=== PATIENT | female | born 1935 | race Caucasian/White ===

== ENCOUNTER 2018-09-07 12:39 | Inpatient (IN) ==
--- NOTE | 2018-09-07 13:52 | PROVIDER DOCUMENTATION ---
HPI-Respiratory General - General Chief Complaint: Shortness of Breath Stated Complaint: SOB/FEVER/CONGESTION Time Seen by Provider: 09/07/18 13:04 Source: patient, family Allergies/Adverse Reactions: Patient Allergies Allergy/AdvReac Type Severity Reaction Status Date / Time No Known Allergies Allergy Verified 09/07/18 13:10 Home Medications: Home Medication List Medication Instructions Recorded Confirmed Last Taken Type Levothyroxine [Synthroid] 50 microgm PO DAILY 03/30/15 05/25/18 05/25/18 History Metformin [Glucophage] 500 mg PO WBREAKFAST 03/30/15 05/25/18 05/25/18 History PRAVAstatin [Pravachol] 40 mg PO DAILY 03/30/15 05/25/18 05/25/18 History Spironolact/Hydrochlorothiazid 0.5 tab PO DAILY 05/25/18 05/25/18 05/25/18 History [Aldactazide 25-25 Tablet] Cyanocobalamin/FA/Pyridoxine 1 each PO DAILY #30 tablet 05/28/18 Unknown Rx [Folgard Tablet] Iron Carbonyl/Ascorbic Acid 1 each PO BID #60 tablet 05/28/18 Unknown Rx [Icar-C] Multivitamins/Minerals [Centrum 1 each PO DAILY tablet 05/28/18 Unknown Rx Silver] Omeprazole [Prilosec] 40 mg PO DAILY@0700 #30 capsule 05/28/18 Unknown Rx Losartan [Cozaar] 50 mg PO BID 30 Days #60 tab 05/31/18 Unknown Rx - History of Present Illness-Resp Nature of Presenting Problem: Presents to the with family who states that for the past 3 days she has been having cough, congestion and SOB. THey state that her SOB was worse on exertion and worse when laying flat. She does have a history of CHF they think and she does take Spironolactone and HCTZ but no other diuretics. She states her cough has whitish mucous. She denies any sick contacts. She went to urgent care prior to arrival and they sent her here with reports of 101.5 fever and tachycardia. She did not take any motrin or tylenol prior to arrival. Severity in ED: reports: moderate Onset/Duration: reports: 3 days ago Timing: reports: still present Cough Quality/Degree: reports: moderate, productive cough Episode Frequency: no prior episodes Modifying Factors: improves with: exertion, lying down Associated Symptoms: reports: cough Similar Symptoms Previously?: Yes Review of Systems - Adult - REVIEW OF SYSTEMS - ADULT Constitutional: reports: chills, fever Eyes: reports: no symptoms reported Ears, Nose, Mouth & Throat: reports: no symptoms reported Cardiovascular: reports: no symptoms reported Respiratory: reports: cough, dyspnea on exertion, shortness of breath Gastrointestinal: reports: no symptoms reported Genitourinary: reports: no symptoms reported Musculoskeletal: reports: no symptoms reported Integumentary: reports: no symptoms reported Neurological: reports: no symptoms reported Psychiatric: reports: no symptoms reported Endocrine: reports: no symptoms reported Hematologic/Lymphatic: reports: no symptoms reported Allergic/Immunologic: reports: no symptoms reported All Other Systems: Reviewed and Negative Past History - Adult - PAST MEDICAL HISTORY-ADULT Review of Records: reports: Old Records Reviewed - IMMUNIZATION STATUS Childhood Immunizations: See Nurse Assessment Flu Vaccine: See Nurse Assessment Physical Exam-General - PHYSICAL EXAM-ADULT Initial Vital Signs Reviewed: Yes - CONSTITUTIONAL General Appearance: appears well, alert, mild distress - EYES Eyes: PERRL/EOMI - HEAD, EARS, NOSE, MOUTH & THROAT HENMT: normocephalic/atraumatic, pharynx normal - NECK Neck: non-tender, full range of motion, supple - RESPIRATORY Respiratory: chest non-tender, lungs clear, no respiratory distress, other (tachypnea) - CARDIOVASCULAR Cardiovascular: normal peripheral pulses, tachycardia - GASTROINTESTINAL (ABDOMEN) Abdominal Exam: normal bowel sounds, non tender, soft - MUSCULOSKELETAL Back Exam: normal inspection, no CVA tenderness Extremity: normal range of motion, non-tender, no pedal edema - SKIN Integumentary: normal color, warm/dry - NEUROLOGIC Neurologic: grossly normal - PSYCHIATRIC Psych/Mental Status: normal mood/affect, oriented x 3 Progress - PLAN OF CARE/RESULTS Progress/Plan/Lab Results: Vital Signs - 8 hr 09/07/18 12:45 09/07/18 13:00 09/07/18 13:06 Temperature 98.5 F Pulse Rate 109 H 108 H Respiratory Rate 22 34 H Blood Pressure 204/85 194/110 O2 Sat by Pulse Oximetry 94 L 92 L 92 L 09/07/18 13:10 09/07/18 13:18 09/07/18 13:20 Temperature Pulse Rate 103 H 122 H 101 H Respiratory Rate 36 H 21 33 H Blood Pressure 165/103 O2 Sat by Pulse Oximetry 93 L 96 94 L 09/07/18 13:30 09/07/18 13:33 09/07/18 13:40 Temperature Pulse Rate 109 H 106 H 113 H Respiratory Rate 32 H 25 H 30 H Blood Pressure 203/119 O2 Sat by Pulse Oximetry 99 92 L 91 L 09/07/18 13:58 09/07/18 14:00 09/07/18 14:04 Temperature Pulse Rate 104 H 106 H 105 H Respiratory Rate 27 H 37 H 29 H Blood Pressure 224/108 O2 Sat by Pulse Oximetry 93 L 91 L 09/07/18 14:10 09/07/18 14:19 09/07/18 14:20 Temperature Pulse Rate 104 H 110 H 97 H Respiratory Rate 26 H 34 H 33 H Blood Pressure 197/118 O2 Sat by Pulse Oximetry 90 L 93 L 92 L 09/07/18 14:30 09/07/18 14:33 09/07/18 16:51 Temperature Pulse Rate 109 H 97 H 107 H Respiratory Rate 28 H 33 H 28 H Blood Pressure 217/115 O2 Sat by Pulse Oximetry 94 L 95 92 L Laboratory Results - last 24 hr 09/07/18 09/07/18 09/07/18 13:30 13:30 13:30 WBC 18.82 H RBC 4.36 Hgb 12.6 Hct 39.0 MCV 89.4 MCH 28.9 MCHC 32.3 L RDW Std Deviation 15.9 H Plt Count 317 MPV 10.7 H Immature Gran % (Auto) 0.3 Neut % (Auto) 87.0 H Lymph % (Auto) 4.6 L V[place] % (Auto) 7.9 Eos % (Auto) 0.0 Baso % (Auto) 0.2 Immature Gran # (Auto) 0.05 H Neut # (Auto) 16.39 H Lymph # (Auto) 0.86 L [place] # (Auto) 1.49 H Eos # (Auto) 0.00 Baso # (Auto) 0.03 Sodium 141 Potassium 4.4 Chloride 95 L Carbon Dioxide 30 Anion Gap 16 BUN 16 Creatinine 1.4 H Estimated GFR/1.73 m2 36 BUN/Creatinine Ratio 11 Glucose 157 H Calculated Osmolality 286 Calcium 9.1 Total Bilirubin 1.24 H AST 29 ALT 19 Alkaline Phosphatase 83 Troponin T [id number] Pept Total Protein 7.3 Albumin 4.1 Globulin 3.2 Albumin/Globulin Ratio 1.3 Plasma Lactate 1.9 Urine Source Urine Color Urine Turbidity Urine pH Ur Specific Brewster Urine Protein Ur Glucose (Stick) Ur Ketones (Stick) Urine Blood Urine Nitrite Urine Bilirubin Urobilinogen Dipstick Urine Leukocytes Urine WBC (Auto) Urine RBC (Auto) U Epithel Cells (Auto) Urine Bacteria (Auto) Urine Crystals Small Round Cells Urine Casts Urine Yeast-like Cells 09/07/18 09/07/18 09/07/18 13:30 13:30 14:50 WBC RBC Hgb Hct MCV MCH MCHC RDW Std Deviation Plt Count MPV Immature Gran % (Auto) Neut % (Auto) Lymph % (Auto) [place] % (Auto) Eos % (Auto) Baso % (Auto) Immature Gran # (Auto) Neut # (Auto) Lymph # (Auto) [place] # (Auto) Eos # (Auto) Baso # (Auto) Sodium Potassium Chloride Carbon Dioxide Anion Gap BUN Creatinine Estimated GFR/1.73 m2 BUN/Creatinine Ratio Glucose Calculated Osmolality Calcium Total Bilirubin AST ALT Alkaline Phosphatase Troponin T < 0.010 [id number] Pept 1472 H Total Protein Albumin Globulin Albumin/Globulin Ratio Plasma Lactate Urine Source CLEAN CATCH Urine Color YELLOW Urine Turbidity HAZY Urine pH 6.0 Ur Specific Brewster 1.016 Urine Protein 50 A Ur Glucose (Stick) NEGATIVE Ur Ketones (Stick) NEGATIVE Urine Blood SMALL A Urine Nitrite NEGATIVE Urine Bilirubin NEGATIVE Urobilinogen Dipstick NORMAL Urine Leukocytes LARGE A Urine WBC (Auto) TNTC A Urine RBC (Auto) <10 U Epithel Cells (Auto) <10 Urine Bacteria (Auto) NEGATIVE Urine Crystals NONE SEEN Small Round Cells Not Reportable Urine Casts NONE SEEN Urine Yeast-like Cells PRESENT Orders Category Date Time Status CHEST-2 VIEWS [RAD] Stat Exams 09/07/18 13:42 Completed BLOOD CULTURE [BLDCUL] Stat Lab 09/07/18 13:30 Results CBC WITH ELECTRONIC DIFF [HEME] Stat Lab 09/07/18 13:30 Completed COMPREHENSIVE METABOLIC PANEL [CHEM] Stat Lab 09/07/18 13:30 Completed LACTATE, PLASMA [CHEM] Stat Lab 09/07/18 13:30 Completed PRO B-NATRIURETIC PEPTIDE Stat Lab 09/07/18 13:30 Completed TROPONIN T Stat Lab 09/07/18 13:30 Completed URINALYSIS W/POSS RFLX CULT [URINALYSIS] Stat Lab 09/07/18 14:50 Completed URINE CULTURE [RM] Routine Lab 09/07/18 15:12 Received URINE MANUAL MICROSCOPIC [URINALYSIS] Stat Lab 09/07/18 14:50 Completed CefTRIAXONE [Rocephin] 1 gm Med 09/07/18 16:11 Discontinued 0.9% Sodium Chloride Inj [Ns] 50 ml IV NOW Transfer/Admit Order [TRANSFER] Routine Transfer 09/07/18 18:09 Ordered Patient with WBC to 18.8, negative CXR, elevated BNP and UA + for UTI. Spoke to Dr Ryan who is coldfusion for patient's PCP. He stated he will come in and see the patient prior to accepting for admission. Patient seen by Dr Ryan, accepted for admission. Stable for floor with telemetry Result Diagrams: 09/07/18 13:30 09/07/18 13:30 - EKG 1 Time of EKG reading by physician:: 13:05 EKG Read and Signed by:: Aylin Urbina EKG Interpretation (*Must complete 3 of following elements*): Abnormal Rate: 104 Rhythm: NSR, tachycardia QRS: RBB ST Wave: non-specific ST changes - XRAY 1 XRAY Study: Chest Impression: See EMR Report (EXAM: CHEST-2 VIEWS 09/07/2018 HISTORY: reports of fevers, SOB, CHF TECHNIQUE: PA and lateral chest COMMENT: There is cardiomegaly. There is no evidence of acute pulmonary disease. The appearance the chest has not changed appreciably considering differences in technique since 05/25/2018. IMPRESSION: Stable chest. Electronically signed by Charles Modi 09/07/2018 1:55 PM) Departure - Departure Date of Disposition Decision: 09/07/18 Time of Disposition Decision: 19:01 DIAGNOSIS: Shortness of breath on exertion, Congestive heart failure, UTI (urinary tract infection), Leukocytosis Disposition: ADMITTED INPATIENT 09 Certified Medical Emergency: Emergent Condition: Stable - Critical Care Note This patient required my direct & personal management of CC.: No Attestation - Physician/ BRIT Attestation Patient care was provided by Advanced Practice Provider:: No The physician spent face to face time with patient:: Yes Advanced Practice Provider documentation review:: Supervising physician onsite and consulted in the evaluation and care of this patient. The physician did have a face to face encounter with the patient.
--- NOTE | 2018-09-07 13:57 | Diag Imaging Result Doc PS360 ---
EXAM: CHEST-2 VIEWS 09/07/2018 HISTORY: reports of fevers, SOB, CHF TECHNIQUE: PA and lateral chest COMMENT: There is cardiomegaly. There is no evidence of acute pulmonary disease. The appearance the chest has not changed appreciably considering differences in technique since 05/25/2018. IMPRESSION: Stable chest. Electronically signed by Charles Modi 09/07/2018 1:55 PM
[2018-09-07 14:27] LABS: BASO# 0.03 X1000 (0.0-0.2); BASO% 0.2 % (0.0-0.8); HEMOGLOBIN 12.6 g/dL (12.0-16.0); IMM GRAN# 0.05 X1000 (0.0-0.04); IMM GRAN% 0.3 % (0.0-0.5); LYMPH# 0.86 X1000 (1.2-3.4); LYMPH% 4.6 % (20.5-51.1); MCH 28.9 PG (27-31); MCHC 32.3 g/dL (33-37); MCV 89.4 FL (81-99); MONO# 1.49 X1000 (0.11-0.59); MONO% 7.9 % (1.7-9.3); MPV 10.7 FL (7.4-10.4); NEUT# 16.39 X1000 (1.4-6.5); PLT 317 X1000 (130-400); RBC 4.36 XMIL (4.2-5.4); RDW 15.9 % (11.5-14.5); WBC 18.82 X1000 (4.8-10.8)
[2018-09-07 14:41] LABS: ALB/GLOB RATIO 1.3; ALBUMIN 4.1 g/dL (3.5-5.0); CALCIUM 9.1 mg/dL (8.8-10.2); CREATININE 1.4 mg/dL (0.5-0.9); POTASSIUM 4.4 mmol/L (3.5-5.1); TOTAL BILIRUBIN 1.24 mg/dL (0.20-1.00); TOTAL PROTEIN 7.3 g/dL (6.3-8.3)
[2018-09-07 15:01] LABS: URINE SOURCE CLEAN CATCH
[2018-09-07 15:08] LABS: BILIRUBIN URINE NEGATIVE (NEGATIVE); BLOOD URINE SMALL (NEGATIVE); COLOR YELLOW; GLUCOSE URINE NEGATIVE (NEGATIVE); KETONE URINE NEGATIVE (NEGATIVE); LEUKOCYTES URINE LARGE (NEGATIVE); NITRITE URINE NEGATIVE (NEGATIVE); PROTEIN URINE 50 mg/dL (NEGATIVE); SP GRAVITY URINE 1.016; TURBIDITY URINE HAZY (CLEAR); UROBILINOGEN URINE NORMAL (NORMAL)
[2018-09-07 15:11] LABS: UR EPITHELIAL CELLS <10 /HPF (<10); URINE BACTERIA NEGATIVE /HPF; URINE RBC <10 /HPF (<10); URINE WBC TNTC /HPF (<10)
[2018-09-07 15:23] LABS: URINE CASTS NONE SEEN; URINE CRYSTALS NONE SEEN; URINE YEAST PRESENT
[2018-09-07] MEDS ORDERED: ROCEPHIN 1 GM in NS 50 ML IV ONE (16:11)
--- NOTE | 2018-09-07 18:42 | HISTORY AND PHYSICAL ---
HISTORY OF PRESENT ILLNESS: Ms. Kam is an 83-year-old. She lives alone in [place]. She is a patient of Dr. Dale Bermudez. The report was that she has felt bad. Apparently Dr. Bermudez just saw her last Saturday in the clinic. She was doing well. She reports she has had burning when she passed her water, she thinks for a couple weeks, but her main complaint when she went to the ambulatory clinic was that she was short of breath and just did not feel good in general. I tried to get her to specify what that meant. She did not really have pain. She did not really have aches of any kind. I think it was mainly her shortness of breath. She has had a cough that has been dry and nonproductive. Denies any sinus tenderness. No gross hematuria. Her bowels have really not changed, her bowel habits, and no complaints there. There has not been any weight gain or loss. She has not noticed any subjective fever or chills, but went to an ambulatory clinic and apparently there she had a low-grade temperature of, I think they said it was 100.2, but that was just the report, and they were concerned because her white count was elevated. When they checked her white count when she came to the emergency room, it was 18,000. She has really a normal differential. There may be a slight left shift. Her chemistries were unremarkable, but all-in-all, she just did not feel good, and she felt she needed to come in the hospital. PAST MEDICAL HISTORY: 1. Chronic iron deficiency anemia. 2. In 2014, she had an upper GI bleed with significant acute blood loss at that time. 3. She reports that she has had congestive heart failure. I looked at an echo which was done in May 2018, and she has a normal left ventricle with good ejection fraction of 60% to 65%. 4. She has a history of smoking. I think she quit, though, in 1995. PAST SURGICAL HISTORY: She does not report any surgeries. ALLERGIES: No known drug allergies. FAMILY HISTORY: She reports it as really noncontributory. I think there was some history of hypertension, otherwise unremarkable. FURTHER PAST MEDICAL HISTORY: I should mention also she has a history of primary hypothyroidism and hypertension and diabetes mellitus and hypercholesterolemia. MEDICATION: At home, she is taking levothyroxine 50 mcg a day, losartan 50 mg a day, metformin 500 mg a day, pravastatin 40 mg a day, spironolactone/hydrochlorothiazide 25/25 one a day. SOCIAL HISTORY: Former smoker, used to smoke 2-1/2 packs for 30+ years. She quit in 1993. She had has never consumed alcoholic beverages. One of her sons and a bovctzbm-qj-wmu were at the bedside, I think. REVIEW OF SYSTEMS: Constitutional: She has not gained or lost weight. HEENT: I do not see any loss of visual or change in auditory acuity. Neck: No neck pain. No cervical adenopathy reported. Cardiovascular: No chest pain or tachycardic palpitation. Pulmonary: She is complaining of shortness of breath. She always sleeps in a recliner. She feels like she cannot walk as far. She does not really describe any orthopnea or paroxysmal nocturnal dyspnea. No swelling in her lower extremities. Gastrointestinal/Genitourinary: No melena or hematochezia. No change in her bowel habits. No rectal bleeding. No gross hematuria, but she does describe that she had some burning when she has been passing her water. Neurologic: No migraines or seizures. No focal changes. Endocrinologic/hematologic: Just primary hypothyroidism. PHYSICAL EXAMINATION: GENERAL: In the emergency room, she is awake and alert. She does seem to have a prolonged expiratory phase and a little bit of wheezing, but her lung cullen are clear. VITAL SIGNS: Her temperature is 98.5 degrees here, pulse 107, respirations 28, blood pressure 217/115. Blood pressures have been bouncing around on the monitor; when I was examining her, it was 145/80. O2 saturation was 92%. HEIGHT: 5 feet. EYES: Pupils are equal and round. LUNGS: With prolonged expiratory phase. End expiratory wheezing appreciated, but lung cullen are moving air in all lung cullen. CARDIOVASCULAR: Regular rhythm and rate. She did present with some sinus tachycardia, a rate about 100 to 110. That is down into the 80s right now. ABDOMEN: Soft, nondistended, nontender. No pelvic pain. EXTREMITIES: Without edema. NECK: Supple. No thyromegaly. No thyroid nodules. LYMPHATIC: No lymphadenopathy that I can appreciate on her neck, supraclavicular, or in her femoral regions. LABORATORY DATA: White count was 18,820, hematocrit is 39, platelet count 317,000. Sodium 141, potassium 4.4, chloride 95, BUN 16, creatinine 1.4, blood sugar is 157, AST is 29, ALT was 19. Troponin less than 0.01. ProBNP was 1472. Urinalysis: There were zty-rdyosqbd-at-count white blood cells, so we will culture the urine. I will treat her with 1 g Rocephin. ASSESSMENT AND PLAN: 1. Possible urinary tract infection. It does sound like she has had symptoms. She does have too- bczckgdk-de-lhvqs white blood cells. We will culture the urine. I will treat her with Rocephin 1 g now and q.24 h. 2. She is complaining of shortness of breath. It seems to be more a bronchial airway irritation. I do not see evidence of volume overload. Her echocardiogram shows she has a normal left ventricular systolic function. She does not clinically show signs of pulmonary venous hypertension so I do not think diuresing her is appropriate at this point. 3. Hypertension. Blood pressure has been a little bit labile. I will continue her current medications. 4. History of anemia in the past. She is on some iron, and her blood counts look good. Hematocrit 39 and hemoglobin is 12.6. 5. She does have a history of hypothyroidism. We will continue her Synthroid. I will check a T4, TSH, B12 and folate in the morning. Recheck her white blood cell count. 6. Leukocytosis. I do not really see signs of clinically significant infection. I do not think the urinary tract sediment can explain the elevated white count, and this may be just demargination from stress. She does not give a history of recent steroids, I do not believe, but I am not sure if she received any steroids in the clinic, or cortisone. cc: Iker Ryan MD
[2018-09-07] MEDS ORDERED: NS 1,000 ML IV SCH (19:49)
[2018-09-07] MEDS: COZAAR PO SCH (21:12)
[2018-09-07] MEDS: ICAR-C PO SCH (21:12)
[2018-09-07] MEDS: ROCEPHIN 1 GM in NS 50 ML IV SCH (21:12)
[2018-09-07] MEDS: DUONEB (A & A) INH SCH (23:12)
[2018-09-08] MEDS: TYLENOL PO PRN ×2 (00:37→16:44)
[2018-09-08] MEDS: DUONEB (A & A) INH SCH ×4 (02:26→20:00)
[2018-09-08 05:18] LABS: ALLEN TEST YES; BE 5.7 mmoll (-3.0-3.0); BLOOD TYPE ARTERIAL; HCO3-(ACT) 29.4 mmoll (20.0-26.0); O2(CT) 13.8 mL/dL (15.0-23.0); PCO2(98.6) 45 mmHg (35-45); PO2(98.6) 89 mmHg (60-100); SAMPLE BLOOD; THB 10.1 g/dL (11.5-17.4); pH(98.6) 7.44 (7.35-7.45)
[2018-09-08 05:20] LABS: MODALITY CANNULA
[2018-09-08] MEDS: SYNTHROID PO SCH (06:33)
[2018-09-08] MEDS: PRILOSEC PO SCH (06:34)
[2018-09-08] MEDS: SYMBICORT 80/4.5 MICROGM INHALER INH SCH ×2 (07:55→19:57)
[2018-09-08 08:16] LABS: BASO# 0.01 X1000 (0.0-0.2); BASO% 0.1 % (0.0-0.8); EOS# 0.01 X1000 (0.0-0.7); EOS% 0.1 % (0.0-10.0); HEMATOCRIT 33.8 % (37.0-47.0); HEMOGLOBIN 10.8 g/dL (12.0-16.0); IMM GRAN# 0.03 X1000 (0.0-0.04); IMM GRAN% 0.2 % (0.0-0.5); LYMPH# 0.26 X1000 (1.2-3.4); LYMPH% 1.7 % (20.5-51.1); MCH 29.1 PG (27-31); MCV 91.1 FL (81-99); MONO# 0.67 X1000 (0.11-0.59); MONO% 4.5 % (1.7-9.3); MPV 10.8 FL (7.4-10.4); NEUT# 14.06 X1000 (1.4-6.5); NEUT% 93.4 % (42.2-75.2); PLT 237 X1000 (130-400); RBC 3.71 XMIL (4.2-5.4); WBC 15.04 X1000 (4.8-10.8)
[2018-09-08 08:37] LABS: HEMOGLOBIN A1C 5.7 % (4.8-6.0)
[2018-09-08 08:40] LABS: CALCIUM 8.4 mg/dL (8.8-10.2); CREATININE 1.7 mg/dL (0.5-0.9); MAGNESIUM 1.1 mg/dL (1.5-2.7); POTASSIUM 3.5 mmol/L (3.5-5.1); TOTAL BILIRUBIN 1.1 mg/dL (0.20-1.00)
[2018-09-08 08:47] LABS: BANDS 34 % (0-1)
[2018-09-08 08:48] LABS: LYMPHS 2 % (21-51); SEGS 60 % (42-75)
[2018-09-08] MEDS ORDERED: LASIX IV ONE (08:58)
[2018-09-08] MEDS: GLUCOPHAGE PO SCH (09:24)
[2018-09-08] MEDS: ALDACTAZIDE 25/25 PO SCH (09:24)
[2018-09-08] MEDS: FOLGARD PO SCH (09:24)
[2018-09-08] MEDS: COZAAR PO SCH ×2 (09:24→20:26)
[2018-09-08] MEDS: PRAVACHOL PO SCH (09:25)
[2018-09-08] MEDS: CENTRUM SILVER PO SCH (09:25)
[2018-09-08] MEDS: ICAR-C PO SCH ×2 (09:25→20:26)
[2018-09-08] MEDS: DIFLUCAN PO SCH (09:33)
--- NOTE | 2018-09-08 09:34 | PROGRESS NOTE ---
DATE: 09/08/2018 SUBJECTIVE: The patient is sitting in bed. She states that she does not feel good, but does not elaborate beyond that, even with questioning. It is noted that she is talking in short sentences and seems slightly dyspneic. OBJECTIVE: Vital signs: T-max 101.3 degrees, temperature now 99.8, blood pressure 105/54, 96% saturated on 2 L nasal cannula. General: As stated in the subjective portion, the patient is not breathing rapidly, but she is speaking only in short sentences and seems to be slightly to moderately dyspneic, although she is not in respiratory distress. Lungs: The patient has bilateral very poor air movement and high-pitched wheezing on expiration. When she forces expiration, the wheezing becomes louder. This is not upper airway noise. Cardiovascular: Regular. Extremities: No peripheral edema. LABORATORY DATA: White cell count 15,000, hemoglobin 10.8. ABG 7.44, pCO2 45, PO2 of 89, 100% saturated. Serum electrolytes are grossly normal. The patient has a BUN of 23, creatinine of 1.7. Microbiology: Urine culture is pending. Blood cultures have preliminary gram-negative rods. ASSESSMENT AND PLAN: 1. The patient's urinary tract infection is likely bacterial with gram-negative. Hopefully, we will get a preliminary culture reading today and be able to adjust antibiotics appropriately. In theory, Rocephin should be adequate to cover given her relatively low risk of resistant organisms. Also noted yeast present in the urine and I am going to start her on some fluconazole. 2. The patient's continued dyspnea is likely multifactorial driven by her obesity, underlying chronic obstructive pulmonary disease and other acute processes, including anemia and wheezing. I am going to adjust the patient's aerosol treatments to 4 times daily. I am going to start her on low-dose steroids to help clear the wheezing. She will get 1 dose of Lasix and we will monitor her progress in that regard. 3. The patient's diabetes is reasonably well controlled at present. With the addition of steroids, this is likely to spiral upward somewhat. I have included fingerstick blood sugars and sliding scale insulin to cover this. Overall, the patient is still moderately to severely ill with temperature, dyspnea and apparent bacteremia. She requires inpatient care for several more days most likely. cc: Dale Bermudez MD
--- NOTE | 2018-09-08 10:14 | Diag Imaging Result Doc PS360 ---
EXAM: CHEST-2 VIEWS - 09/08/2018 HISTORY: short of breath TECHNIQUE: Chest two views COMPARISON: 09/07/2018 FINDINGS: Heart size appears in the upper range of normal. Inspiration is mildly shallow. The lungs appear essentially clear. There is no pleural effusion or pneumothorax identified. There are thoracic spondylosis and exaggerated kyphosis noted. IMPRESSION: Mildly shallow inspiration. No other evidence of acute disease. Electronically signed by Froylan Nino 09/08/2018 10:11 AM
--- NOTE | 2018-09-08 10:19 | EKG Report ---
Test Performed on : 09/07/2018 1:00:58 PM Test Reason : ED. No order iN MT Blood Pressure : / mmHG Vent. Rate : 104 BPM Atrial Rate : 104 BPM P-R Int : 128 ms QRS Dur : 108 ms QT Int : 348 ms P-R-T Axes : 068 074 -13 degrees QTc Int : 457 ms Sinus tachycardia. Incomplete right bundle branch block ST & T wave abnormality, consider anterior ischemia Abnormal ECG When compared with ECG of 25-MAY-2018 11:44, Vent. rate has increased BY 34 BPM Unconfirmed Result
[2018-09-08] MEDS: SOLU-MEDROL IV SCH ×2 (10:38→20:26)
[2018-09-08] MEDS: HUMALOG SUBQ SCH ×3 (12:02→20:31)
[2018-09-08] MEDS: ROCEPHIN 1 GM in NS 50 ML IV SCH (19:45)
[2018-09-09] MEDS: DUONEB (A & A) INH SCH ×4 (03:31→20:30)
[2018-09-09] MEDS: SYNTHROID PO SCH (06:16)
[2018-09-09] MEDS: PRILOSEC PO SCH (06:17)
[2018-09-09] MEDS: HUMALOG SUBQ SCH ×4 (06:17→23:07)
[2018-09-09] MEDS: SYMBICORT 80/4.5 MICROGM INHALER INH SCH ×2 (08:04→20:30)
[2018-09-09] MEDS: DIFLUCAN PO SCH (08:08)
[2018-09-09] MEDS: COZAAR PO SCH ×2 (08:08→23:02)
[2018-09-09] MEDS: PRAVACHOL PO SCH (08:08)
[2018-09-09] MEDS: GLUCOPHAGE PO SCH (08:08)
[2018-09-09] MEDS: ICAR-C PO SCH ×2 (08:08→23:02)
[2018-09-09] MEDS: ALDACTAZIDE 25/25 PO SCH (08:08)
[2018-09-09] MEDS: CENTRUM SILVER PO SCH (08:08)
[2018-09-09] MEDS: FOLGARD PO SCH (08:09)
[2018-09-09] MEDS: SOLU-MEDROL IV SCH ×2 (08:15→23:03)
[2018-09-09] MEDS ORDERED: LASIX IV ONE (08:21)
[2018-09-09] MEDS ORDERED: KLOR-CON PO ONE (08:22)
--- NOTE | 2018-09-09 08:46 | PROGRESS NOTE ---
DATE: 09/09/2018 SUBJECTIVE: The patient states that she feels better today. Her son stated that she was "sleeping all day". He told me that she does not rest well at home because she is unable to pull her legs up into bed so she has slept in a recliner for a number of years. OBJECTIVE: Vital Signs: T-max was 101 degrees at 4 a.m. yesterday. She had her last fever spike around 4 p.m. Temperature now is 98.1, pulse rate is 102, blood pressure is 135/54, 98% saturated on nasal cannula. Physical Examination: General: The patient is alert, oriented, conversive, and appropriate. She is speaking in longer sentences. Lungs: The patient still has poor to fair air movement but there was no audible wheezing. Air movement on the whole has improved since yesterday. Cardiovascular: Appears to be regular at approximately 90 beats per minute at the time of my examination. Extremities: No peripheral edema. Laboratories: None were drawn today. ASSESSMENT AND PLAN: 1. The patient clearly has a urinary tract infection. Urine culture had suboptimal colony counts of Proteus mirabilis with only one resistant drug. Her Rocephin should cover that easily. The blood culture still just reads gram-negative иван. I am sure that will correlate. We will await for those sensitivities to make any type of adjustment in antibiotics, given her progress. The patient is also being given an antifungal for yeast present in the urine. 2. The patient's dyspnea has improved. I plan to re-dose her Lasix today and to try and taper steroids over the next day or two. 3. The patient's diabetes is reasonably well controlled despite steroid use. We will continue sliding scale. 4. The patient still will require several days of inpatient treatment. Although the patient feels much better today, she is still struggling to gain her feet and I have left instructions with the nursing staff to get her in a chair and to try and get her to move around a bit. cc: Dale Bermudez MD
[2018-09-09] MEDS: ROCEPHIN 1 GM in NS 50 ML IV SCH (23:01)
[2018-09-10] MEDS: DUONEB (A & A) INH SCH ×3 (03:12→19:55)
[2018-09-10] MEDS: PRILOSEC PO SCH (06:13)
[2018-09-10] MEDS: SYNTHROID PO SCH (06:14)
[2018-09-10] MEDS: HUMALOG SUBQ SCH ×4 (06:16→21:07)
[2018-09-10 07:15] LABS: HEMATOCRIT 32.1 % (37.0-47.0); HEMOGLOBIN 10.4 g/dL (12.0-16.0); IMM GRAN# 0.02 X1000 (0.0-0.04); IMM GRAN% 0.2 % (0.0-0.5); LYMPH% 2.6 % (20.5-51.1); MCH 29.2 PG (27-31); MCHC 32.4 g/dL (33-37); MCV 90.2 FL (81-99); MONO# 0.57 X1000 (0.11-0.59); MONO% 4.8 % (1.7-9.3); MPV 11.4 FL (7.4-10.4); NEUT# 10.87 X1000 (1.4-6.5); NEUT% 92.4 % (42.2-75.2); PLT 221 X1000 (130-400); RBC 3.56 XMIL (4.2-5.4); RDW 15.8 % (11.5-14.5); WBC 11.76 X1000 (4.8-10.8)
[2018-09-10 07:26] LABS: CALCIUM 8.8 mg/dL (8.8-10.2); CREATININE 2.2 mg/dL (0.5-0.9); POTASSIUM 4.3 mmol/L (3.5-5.1)
[2018-09-10] MEDS: SYMBICORT 80/4.5 MICROGM INHALER INH SCH ×2 (07:42→19:55)
[2018-09-10] MEDS: GLUCOPHAGE PO SCH (08:56)
[2018-09-10] MEDS: PRAVACHOL PO SCH (08:57)
[2018-09-10] MEDS: ICAR-C PO SCH ×2 (08:57→21:07)
[2018-09-10] MEDS: DIFLUCAN PO SCH (08:57)
[2018-09-10] MEDS: CENTRUM SILVER PO SCH (08:57)
[2018-09-10] MEDS: COZAAR PO SCH ×2 (08:57→21:07)
[2018-09-10] MEDS: FOLGARD PO SCH (08:58)
--- NOTE | 2018-09-10 09:33 | PROGRESS NOTE ---
DATE: 09/10/2018 SUBJECTIVE: The patient states she is still not doing well, but by all indications from nursing notes physical therapy and from the family she has improved greatly. She has been up in the chair for most of the day yesterday and did some walking, which is a sign of improvement. She states that she tires easily though. OBJECTIVE: Vital Signs: The patient is afebrile for more than 24 hours. Temperature is 97.8 degrees, pulse 83, respiration 19, blood pressure 131/67, and 97% saturation on room air. General: Obese white female in no acute distress. She is speaking in full sentences. Lungs: Clear to auscultation bilaterally. She does not breathe terribly deep, but she is not wheezing as previously. Cardiovascular: Regular at approximately 90 beats per minute at the time of my examination. Extremities: No peripheral edema. Skin: There is no skin tenting. LABORATORIES: Blood sugar has been mostly in the 200s. BUN is 65, creatinine 2.2, hemoglobin is 10.4, and hematocrit 32.1. ASSESSMENT AND PLAN: 1. The patient's microbiology studies have shown that the blood cultures and urine were positive for the same organism of Proteus mirabilis with the only resistance being to nitrofurantoin. She is on Rocephin. We will continue this at the present time. She does not have any signs or symptoms of sepsis at the present time. The patient is on antifungal for yeast present in the urine. 1. The patient's dyspnea has improved. I think I have over shot the linda with her Lasix, and caused increase in her kidney function. I am going to let that equilibrate and recheck tomorrow. I am not going to have any diuretics on board at the present time. She may require some on outpatient basis. 2. The patient's diabetes is up a bit given her steroid dose. I am going to reduce that dose of steroids, and hopefully her sugar will come back into line. Unfortunately, due to her elevated BUN and creatinine, I have had to discontinue her metformin for the present time. 3. The patient is still a bit weak and with the bump in her creatinine, I think she still needs inpatient treatment. She is slowly regaining her feet, and hopefully she will continue that trend. cc: Dale Bermudez MD
[2018-09-10] MEDS: PREDNISONE PO SCH (09:47)
[2018-09-10] MEDS: ROCEPHIN 1 GM in NS 50 ML IV SCH (21:07)
[2018-09-11] MEDS: HUMALOG SUBQ SCH ×4 (06:56→20:38)
[2018-09-11] MEDS: PRILOSEC PO SCH (06:57)
[2018-09-11] MEDS: SYNTHROID PO SCH (06:57)
--- NOTE | 2018-09-11 07:45 | Diag Imaging Result Doc PS360 ---
EXAM: CT HEAD W/O CONTRAST INDICATION: Patient fell, hit back of head, has laceration TECHNIQUE: This exam was performed using automated exposure control, adjustment of mA or kV according to patient size, and/or use of iterative reconstruction technique. COMPARISON: None. FINDINGS: There is mild diffuse brain atrophy. There is no definite acute infarct given the limited sensitivity of CT versus MRI. There is no discrete intracranial mass, mass effect, or intracranial hemorrhage. There is mild edema at the posterior scalp on the left. The calvaria is intact. IMPRESSION: Mild brain atrophy. No evidence of acute intracranial pathology. Electronically signed by Frantz Ruiz 09/11/2018 7:43 AM
[2018-09-11 08:03] LABS: EOS# 0.01 X1000 (0.0-0.7); EOS% 0.1 % (0.0-10.0); HEMATOCRIT 33.3 % (37.0-47.0); HEMOGLOBIN 11.2 g/dL (12.0-16.0); LYMPH# 0.45 X1000 (1.2-3.4); LYMPH% 3.5 % (20.5-51.1); MCH 30.2 PG (27-31); MCHC 33.6 g/dL (33-37); MCV 89.8 FL (81-99); MONO# 1.22 X1000 (0.11-0.59); MONO% 9.6 % (1.7-9.3); MPV 11.1 FL (7.4-10.4); NEUT# 11.06 X1000 (1.4-6.5); NEUT% 86.8 % (42.2-75.2); PLT 252 X1000 (130-400); RBC 3.71 XMIL (4.2-5.4); RDW 15.6 % (11.5-14.5); WBC 12.74 X1000 (4.8-10.8)
[2018-09-11] MEDS: SYMBICORT 80/4.5 MICROGM INHALER INH SCH ×2 (08:08→19:37)
[2018-09-11] MEDS: DUONEB (A & A) INH SCH (08:08)
[2018-09-11 08:16] LABS: CALCIUM 9.3 mg/dL (8.8-10.2); CREATININE 2.2 mg/dL (0.5-0.9); POTASSIUM 4.4 mmol/L (3.5-5.1)
[2018-09-11] MEDS ORDERED: NS 1,000 ML IV ONE (08:59)
[2018-09-11] MEDS: ICAR-C PO SCH ×2 (09:12→20:35)
[2018-09-11] MEDS: COZAAR PO SCH ×2 (09:12→20:35)
[2018-09-11] MEDS: CENTRUM SILVER PO SCH (09:12)
[2018-09-11] MEDS: FOLGARD PO SCH (09:13)
[2018-09-11] MEDS: PREDNISONE PO SCH (09:13)
[2018-09-11] MEDS: PRAVACHOL PO SCH (09:13)
--- NOTE | 2018-09-11 09:25 | PROGRESS NOTE ---
DATE: 09/11/2018 SUBJECTIVE: The patient had a rough night. She was out in the [place], wandering. She was confused. She was combative. She actually fell and suffered a laceration to the back of her scalp. She has been confused this morning as well. The patient's sons have stated that she has been cursing and argumentative, which is completely out of character for her normal demeanor. OBJECTIVE: Vital Signs: 97.7, 88, 18, 155/74. Physical Examination: General: The patient is rather belligerent and obtuse when questioned. She is not being kind to her sons at all. Respiratory: Patient's lungs are clear. Cardiovascular: Regular. Extremities: No peripheral edema. Laboratory: White cell count is 12.7, hematocrit is 33.3. BUN is 73, creatinine 2.2, blood sugar 116. ASSESSMENT AND PLAN: 1. After the patient's fall, a CT scan was negative for intracranial hemorrhage or other acute findings. I think her change in mental status is fueled by a non-recovery of acute kidney injury with elevated BUN causing confusion. I am going to give her some intravenous fluids and recheck that tomorrow. We have over-diuresed her in the hopes of improving her breathing. Unfortunately, the acute kidney injury has worsened her mental status. 2. The patient's urinary tract infection has been treated. I am going to discontinue fluconazole and continue Rocephin. 3. Diabetes is adequately controlled. 4. The patient will continue physical therapy. Hopefully, if we can improve her overall sensorium, she will perform better with physical therapy and may be able to go home in the next day or two. cc: Dale Bermudez MD
[2018-09-11] MEDS: DIFLUCAN PO SCH (14:08)
[2018-09-11] MEDS: NS 1,000 ML IV SCH (14:08)
[2018-09-11] MEDS: ROCEPHIN 1 GM in NS 50 ML IV SCH (20:59)
[2018-09-11] MEDS: TYLENOL PO PRN (21:00)
[2018-09-12] MEDS: HUMALOG SUBQ SCH ×4 (06:30→20:49)
[2018-09-12] MEDS: SYNTHROID PO SCH (06:49)
[2018-09-12] MEDS: PRILOSEC PO SCH (06:49)
[2018-09-12] MEDS: NS 1,000 ML IV SCH (06:50)
[2018-09-12] MEDS: SYMBICORT 80/4.5 MICROGM INHALER INH SCH ×2 (07:47→19:10)
[2018-09-12 08:06] LABS: CALCIUM 8.3 mg/dL (8.8-10.2); CREATININE 1.6 mg/dL (0.5-0.9); POTASSIUM 4.5 mmol/L (3.5-5.1)
[2018-09-12] MEDS: CENTRUM SILVER PO SCH (09:35)
[2018-09-12] MEDS: COZAAR PO SCH ×2 (09:35→20:47)
[2018-09-12] MEDS: FOLGARD PO SCH (09:35)
[2018-09-12] MEDS: PREDNISONE PO SCH (09:35)
[2018-09-12] MEDS: PRAVACHOL PO SCH (09:35)
[2018-09-12] MEDS: ICAR-C PO SCH ×2 (09:35→20:47)
--- NOTE | 2018-09-12 11:03 | PROGRESS NOTE ---
DATE: 09/12/2018 SUBJECTIVE: The patient's son stated he had stayed with her last night and she was basically up all night. She was reasonably well oriented, but just was not sleeping. This morning she had a bath with the nurses and now has fallen sound asleep and really acts as if she cannot be bothered to respond to anything. She does arouse and answer appropriately, but then she falls asleep very quickly. He states that she has not had much sleep since she got to the hospital several days ago. OBJECTIVE: Vital Signs: Temperature 98, heart rate 98, respiratory rate 19, blood pressure 176/66. Lungs: On physical exam, the patient's lungs are clear. Cardiovascular: Regular. Extremities: Show trace edema. Neuropsychiatric: The patient is somnolent, but arousable. She seems appropriate when she answers, but falls asleep very quickly. LABORATORY DATA: BUN is down to 55, creatinine down to 1.6. ASSESSMENT AND PLAN: 1. The patient's neurological status has improved. According to her son, she was much more oriented this morning and actually last night did quite well. She was able to participate in physical therapy yesterday and was able to be gotten up out of the chair and she did walk. I think that the source of her confusion was driven in large part by the elevation in BUN and creatinine. We are going to continue intravenous fluids through the day and monitor her overall fluid status. 2. The patient's urinary tract with Proteus mirabilis has been treated with Rocephin. She also had positive blood cultures. She has not had any fevers in several days. 3. We will discontinue the patient's steroids as her wheezing has been controlled. Her diabetes is reasonably controlled on sliding scale. We will continue to monitor this. Because of the elevation of creatinine, I discontinued her metformin, which she will likely get back at the time of discharge. 4. We will continue physical therapy. 5. I am hopeful for discharge tomorrow to home with some oral antibiotics and close monitoring by the family. cc: Dale Bermudez MD
[2018-09-12] MEDS: ROCEPHIN 1 GM in NS 50 ML IV SCH (20:47)
[2018-09-12] MEDS: TYLENOL PO PRN (22:25)
[2018-09-13] MEDS: HUMALOG SUBQ SCH ×4 (06:23→21:09)
[2018-09-13] MEDS: SYNTHROID PO SCH (06:29)
[2018-09-13] MEDS: PRILOSEC PO SCH (06:30)
[2018-09-13 06:55] LABS: BASO# 0.01 X1000 (0.0-0.2); BASO% 0.1 % (0.0-0.8); EOS# 0.15 X1000 (0.0-0.7); EOS% 1.6 % (0.0-10.0); HEMATOCRIT 31.3 % (37.0-47.0); HEMOGLOBIN 10.2 g/dL (12.0-16.0); LYMPH# 1.02 X1000 (1.2-3.4); MCH 29.2 PG (27-31); MCHC 32.6 g/dL (33-37); MCV 89.7 FL (81-99); MONO# 0.81 X1000 (0.11-0.59); MONO% 8.7 % (1.7-9.3); MPV 10.4 FL (7.4-10.4); NEUT# 7.29 X1000 (1.4-6.5); NEUT% 78.6 % (42.2-75.2); PLT 256 X1000 (130-400); RBC 3.49 XMIL (4.2-5.4); RDW 15.7 % (11.5-14.5); WBC 9.28 X1000 (4.8-10.8)
[2018-09-13 07:05] LABS: CALCIUM 8.4 mg/dL (8.8-10.2); CREATININE 1.7 mg/dL (0.5-0.9); POTASSIUM 3.9 mmol/L (3.5-5.1)
[2018-09-13] MEDS: SYMBICORT 80/4.5 MICROGM INHALER INH SCH ×2 (07:49→19:10)
[2018-09-13] MEDS: GLUCOPHAGE PO SCH (08:26)
[2018-09-13] MEDS: ALDACTAZIDE 25/25 PO SCH (08:26)
[2018-09-13] MEDS: FOLGARD PO SCH (08:27)
[2018-09-13] MEDS: CENTRUM SILVER PO SCH (08:27)
[2018-09-13] MEDS: COZAAR PO SCH ×2 (08:27→21:09)
[2018-09-13] MEDS: ICAR-C PO SCH ×2 (08:28→21:09)
[2018-09-13] MEDS: PRAVACHOL PO SCH (08:28)
--- NOTE | 2018-09-13 09:27 | PROGRESS NOTE ---
DATE: 09/13/2018 SUBJECTIVE: The patient states that she is cold this morning. She has had them turn up the heat but she is shivering. We have no report of fever on the chart. The patient's son states that her mental status has been solid since yesterday and she has actually done quite well with physical therapy and such. She states that she is coughing less than she was before and denies shortness of breath. They put oxygen back on her this morning because of a slightly low oxygen saturation although the low oxygen saturation is not documented in the chart anywhere. OBJECTIVE: Vital Signs: 98.4, 85, 18, 136/73, 95% saturated on nasal cannula. Lungs: Clear. She generally has [id number] air movement from long standing COPD. There are no focal findings on her lungs. Cardiovascular: Regular with a heart rate in the 80s. No significant murmurs heard. Extremities: Very miniscule trace edema in the lower extremities in dependent positions. Neuropsychiatric: The patient is alert, oriented, conversive and appropriate. It is noted that she is shivering slightly. ASSESSMENT AND PLAN: 1. I have been hopeful of discharge today, but because of the drop in oxygen saturation (reportedly) and her shivering, I am going to hold on to her for another day. We are going to change to oral antibiotics and discontinue her Rocephin. I am going to change her over to Levaquin 250 daily and likely she will be discharged home. That should cover the Proteus mirabilis from her blood and from her urine. 2. Urinary tract infection has been treated effectively with Rocephin. She has no further fever. See above for change in antibiotics. 3. Steroids have been discontinued. 4. Physical therapy will continue. 5. Blood sugars have been adequately controlled. 6. The patient's acute kidney injury from overdiuresis has been corrected for the most part. Her creatinine is still not back at baseline, but the BUN has drop significantly and her mental status is improved. I am still holding diuretics until after discharge. 7. If all goes swimming, we hopefully will be able to discharge home tomorrow. I will reconcile home medications and have her prescriptions on the chart so that if she is feeling good tomorrow, the call coverage partner can just send her home. cc: Dale Bermudez MD MTDD
[2018-09-13] MEDS: LEVAQUIN PO SCH (11:34)
[2018-09-13] MEDS: TYLENOL PO PRN (21:16)
[2018-09-14] MEDS: PRILOSEC PO SCH (06:17)
[2018-09-14] MEDS: SYNTHROID PO SCH (06:17)
[2018-09-14] MEDS: HUMALOG SUBQ SCH ×2 (06:17→11:37)
[2018-09-14 07:28] VITALS: BP 155/66
[2018-09-14] MEDS: SYMBICORT 80/4.5 MICROGM INHALER INH SCH (08:00)
[2018-09-14] MEDS: CENTRUM SILVER PO SCH (08:18)
[2018-09-14] MEDS: PRAVACHOL PO SCH (08:19)
[2018-09-14] MEDS: LEVAQUIN PO SCH (08:19)
[2018-09-14] MEDS: FOLGARD PO SCH (08:19)
[2018-09-14] MEDS: ICAR-C PO SCH (08:19)
[2018-09-14] MEDS: COZAAR PO SCH (08:19)
--- NOTE | 2018-09-16 19:00 | DISCHARGE SUMMARY ---
ADMISSION DATE: 09/09/2018 DISCHARGE DATE: 09/14/2018 DISCHARGE DIAGNOSIS: 1. UTI with bacteremia. 2. Acute kidney injury secondary to dehydration. 3. Iatrogenic kidney injury due to medications. 4. Hypertension. 5. Acute delirium. 6. Diabetes mellitus. 7. Chronic obstructive pulmonary disease. HOSPITAL COURSE: The patient was admitted being gravely ill and having a high white count and fever. She was subsequently found to have urinary tract infection and was started on empiric antibiotics. Later, cultures grew out Proteus mirabilis from both her urine and from both the blood cultures. It is a bit odd that the urine culture although positive did not reach a colony count that we typically associate with overwhelming infection. Regardless, the patient's Proteus organism was sensitive to all antibiotics and she was continued on Rocephin throughout her hospitalization. She tolerated this well. The patient also had some wheezing upon getting here and had been given a bunch of fluid. I tried to gently diuresis this off but over shot the linda and caused acute kidney injury which did not seem to recover without the reinstitution of fluids. As a result, her creatinine and BUN climbed. She became acutely confused a few days before discharge. With the reapplication of fluids and normalization of her BUN and creatinine her mental status went back to baseline. The overall affect of her infection and other hospital complications resulted in overall weakness. I did not think the patient was a good plan candidate for rehab and she was very desirous of being discharged home. The patient has 2 sons which help her and other family members and she was discharged home on Saturday in my absence by my call partner. The patient was given an antibiotic at discharge and she will follow up approximately 2 weeks post discharge to linda her progress. If necessary, we will institute some type of home health care or other service to help her out. At the time of discharge, the patient was able to walk in the halls with assistance, although she would likely be confined to a walker at home if she was to try and do this on her own. Hopefully as her strength returns, this will improve as well. cc: Dale Bermudez MD
== END 2018-09-14 12:36 | disposition home health service (06) | DRG 689 ==
LOC: ED 12:39 → 3N 12:39
PROVIDERS: ADMIT Internal Medicine; ATTEND Internal Medicine
CPT/HCPCS: 70450; 71020; 71046; 80048; 80053; 81001; 82607; 82746; 82805; 82948; 83036; 83605; 83735; 83880; 84436; 84484; 85025; 87040; 87077; 87088; 87186; 93005; 94640; 94761; 96365; 97116; 97162; 97530; 99285; A9270; J0696; J1815; J1940; J2920; J7030; J7506; J7512; XXXXX

== ENCOUNTER 2018-11-12 18:35 | Inpatient (IN) ==
--- NOTE | 2018-11-12 19:39 | Diag Imaging Result Doc PS360 ---
EXAM: CHEST-PORTABLE - 11/12/2018 HISTORY: ams TECHNIQUE: Portable chest COMPARISON: 09/08/2018 FINDINGS: Heart size appears within normal limits. Lungs appear grossly clear. There is no pleural effusion or pneumothorax identified. IMPRESSION: No evidence of acute disease. Electronically signed by Froylan Nino 11/12/2018 7:37 PM
[2018-11-12 20:04] LABS: BASO# 0.02 X1000 (0.0-0.2); BASO% 0.1 % (0.0-0.8); HEMATOCRIT 36.8 % (37.0-47.0); HEMOGLOBIN 12.4 g/dL (12.0-16.0); IMM GRAN# 0.05 X1000 (0.0-0.04); IMM GRAN% 0.3 % (0.0-0.5); LYMPH# 0.88 X1000 (1.2-3.4); LYMPH% 5.2 % (20.5-51.1); MCH 29.8 PG (27-31); MCHC 33.7 g/dL (33-37); MCV 88.5 FL (81-99); MONO# 1.33 X1000 (0.11-0.59); MONO% 7.9 % (1.7-9.3); MPV 10.6 FL (7.4-10.4); NEUT# 14.61 X1000 (1.4-6.5); NEUT% 86.5 % (42.2-75.2); PLT 282 X1000 (130-400); RBC 4.16 XMIL (4.2-5.4); RDW 14.7 % (11.5-14.5); WBC 16.89 X1000 (4.8-10.8)
[2018-11-12 20:05] LABS: INR 1.09
[2018-11-12 20:06] LABS: PTT 31.3 Seconds (22.3-41.8)
--- NOTE | 2018-11-12 20:08 | PROVIDER DOCUMENTATION ---
This chart was entered by Yessy Whitley Scribe, acting as scribe for Laura Avila MD. HPI-General Adult - General Source: patient - History of Present Illness -Gen Adult Nature of Presenting Problems: pt is a 83 yr old female presenting via EMS from home, family reports when her grandson came to get her he found her in the floor, agitated, confused, pt was being picked up to go to PCP for UTI symptoms. pt admits she was in the floor cleaning up after her animals then was unable to get up, pt reports she was in floor approx 10min, family believes she was in floor much longer. pt admits urinary retention today but denies dysuria. pt alert/oriented x 3 on exam. f dev reports she was acting similar to last time she had UTI Location of Pain/Injury: reports: none Pain Radiation: reports: no radiation Quality of Pain: reports: none Severity: reports: mild Onset/Duration: reports: this morning Timing: reports: still present Context/Activities at Onset: reports: light activity Modifying Factors: improves with: nothing Associated Symptoms: reports: genitourinary problems (retention). denies: diarrhea, nausea, vomiting Similar Symptoms Previously?: No Recently seen or treated by another doctor?: No <Laura Avila - Last Filed: 11/12/18 20:06> <Curry Almaraz - Last Filed: 11/12/18 23:11> - General Chief Complaint: UTI Symptoms Stated Complaint: UTI Time Seen by Provider: 11/12/18 18:59 Allergies/Adverse Reactions: Patient Allergies Allergy/AdvReac Type Severity Reaction Status Date / Time No Known Allergies Allergy Verified 09/07/18 13:10 Home Medications: Home Medication List Medication Instructions Recorded Confirmed Last Taken Type PRAVAstatin [Pravachol] 40 mg PO HS 03/30/15 09/07/18 08/30/18 21:00 History Spironolact/Hydrochlorothiazid 0.5 tab PO DAILY 05/25/18 09/07/18 09/06/18 09:00 History [Aldactazide 25-25 Tablet] Multivitamins/Minerals [Centrum 1 each PO DAILY tablet 05/28/18 09/07/18 09/06/18 09:00 Rx Silver] Omeprazole [Prilosec] 40 mg PO DAILY@0700 #30 capsule 05/28/18 09/07/18 09/06/18 07:00 Rx Losartan [Cozaar] 50 mg PO BID 30 Days #60 tab 05/31/18 09/07/18 09/06/18 21:00 Rx Budesonide/Formoterol Inhaler 2 puff INH RTBID inhaler 09/13/18 Unknown Rx [Symbicort 80/4.5 Microgm Inhaler] Cyanocobalamin/FA/Pyridoxine 1 ea PO DAILY #30 tab 09/13/18 Unknown Rx [Folgard Tablet] Iron Carbonyl/Ascorbic Acid 1 ea PO BID #60 tab 09/13/18 Unknown Rx [Icar-C] Levofloxacin [Levaquin] 250 mg PO DAILY #5 tab 09/13/18 Unknown Rx Levothyroxine [Synthroid] 50 microgm PO DAILY@0700 tab 09/13/18 Unknown Rx Review of Systems - Adult - REVIEW OF SYSTEMS - ADULT Constitutional: denies: chills, fever, fatique Eyes: denies: discharge, redness Ears, Nose, Mouth & Throat: denies: ear pain, sinus problem, throat pain Cardiovascular: denies: chest pain, edema, palpitations, syncope Respiratory: denies: cough, dyspnea on exertion, shortness of breath Gastrointestinal: denies: abdominal pain, diarrhea, nausea, vomiting Genitourinary: reports: urinary retention. denies: dysuria, frequency Musculoskeletal: denies: muscle aches, muscle weakness Integumentary: reports: no symptoms reported Neurological: denies: dizziness/vertigo, headache/migraines, loss of balance, numbness, slurred speech, syncope Psychiatric: reports: no symptoms reported Endocrine: reports: no symptoms reported Hematologic/Lymphatic: reports: no symptoms reported Allergic/Immunologic: reports: no symptoms reported All Other Systems: Reviewed and Negative <Laura Avila - Last Filed: 11/12/18 20:06> Past History - Adult - PAST MEDICAL HISTORY-ADULT Review of Records: reports: Old Records Reviewed, Nursing Assessment Review, Medications Reviewed, Social history reviewed & non-contributory. Major Childhood Illnesses: reports: denies history Cardiovascular: reports: denies history Respiratory: reports: denies history Gastrointestinal: reports: denies history Obstetrical/Gynecological: reports: denies history Genitourinary: reports: denies history Musculoskeletal: reports: denies history Neurological: reports: denies history Endocrine/Immune: reports: denies history Other Conditions: reports: denies history - IMMUNIZATION STATUS Childhood Immunizations: See Nurse Assessment Flu Vaccine: See Nurse Assessment - FAMILY HISTORY Family History: reviewed, not pertinent - SOCIAL HISTORY Smoking: quit greater than 1 year Substance Use: denies Living Situation: alone <Laura Avila - Last Filed: 11/12/18 20:06> Physical Exam-General - PHYSICAL EXAM-ADULT Initial Vital Signs Reviewed: Yes - CONSTITUTIONAL General Appearance: alert, no apparent distress - EYES Eyes: PERRL/EOMI - HEAD, EARS, NOSE, MOUTH & THROAT HENMT: normocephalic/atraumatic, moist mucous membranes, normal ENT inspection - NECK Neck: non-tender, full range of motion, supple, normal inspection - RESPIRATORY Respiratory: chest non-tender, lungs clear, normal breath sounds - CARDIOVASCULAR Cardiovascular: normal peripheral pulses, regular rate, rhythm, no edema - GASTROINTESTINAL (ABDOMEN) Abdominal Exam: normal bowel sounds, non tender, soft, no organomegaly - LYMPHATIC Lymphatic: no adenopathy - MUSCULOSKELETAL Back Exam: normal inspection, no CVA tenderness, no vertebral tenderness Extremity: normal range of motion, non-tender, normal inspection, no pedal edema , no calf tenderness, normal capillary refill. negative: pulse deficit - SKIN Integumentary: normal color, normal turgor, warm/dry - NEUROLOGIC Neurologic: grossly normal, no motor/sensory deficits - PSYCHIATRIC Psych/Mental Status: normal mood/affect, oriented x 3 <Laura Avila - Last Filed: 11/12/18 20:06> Progress - PLAN OF CARE/RESULTS Progress/Plan/Lab Results: Vital Signs - 8 hr 11/12/18 18:48 11/12/18 18:59 Temperature 97.5 F L 97.3 F L Pulse Rate 108 H 92 H Respiratory Rate 17 19 Blood Pressure 155/108 O2 Sat by Pulse Oximetry 95 96 Orders Category Date Time Status CBC WITH ELECTRONIC DIFF [HEME] Stat Lab 11/12/18 19:00 Uncollected COMPREHENSIVE METABOLIC PANEL [CHEM] Stat Lab 11/12/18 19:00 Uncollected URINALYSIS W/POSS RFLX CULT [URINALYSIS] Stat Lab 11/12/18 19:00 Uncollected Result Diagrams: 11/12/18 19:45 - EKG 1 Time of EKG reading by physician:: 18:52 EKG Read and Signed by:: Abdiel Oglesby EKG Interpretation (*Must complete 3 of following elements*): Abnormal (twave a bnormality consider inferior ischemia) Rate: 101 Rhythm: sinus tachycardia with short OR with frequent PVCs [place]: normal QRS: RBB, PVC's (frequent) - XRAY 1 XRAY Study: Chest Impression: Normal ( EXAM: CHEST-PORTABLE - 11/12/2018 HISTORY: ams TECHNIQUE: Portable chest COMPARISON: 09/08/2018 FINDINGS: Heart size appears within normal limits. Lungs appear grossly clear. There is no pleural effusion or pneumothorax identified. IMPRESSION: No evidence of acute disease. Electronically signed by Froylan Nino 11/12/2018 7:37 PM 11/12/181936 Interpreting Physician: Froylan Nino MD Dictated Date/Time: 11/12/181934 cc: Laura Avila MD; Dale Bermudez MD) Comparison with other Films: no changes (09/08/18) - CHANGE OF SHIFT REPORT (ED Provider) 1 Report Given and Care Transferred to:: Dr. Almaraz Time of Transfer: 20:07 Items Pending: Labs <Laura Avila - Last Filed: 11/12/18 20:06> - PLAN OF CARE/RESULTS Progress/Plan/Lab Results: Vital Signs - 8 hr 11/12/18 18:48 11/12/18 18:56 11/12/18 18:59 Temperature 97.5 F L 97.3 F L Pulse Rate 108 H 104 H 109 H Respiratory Rate 17 25 H Blood Pressure 155/108 O2 Sat by Pulse Oximetry 95 96 93 L 11/12/18 19:00 11/12/18 19:10 11/12/18 19:20 Temperature Pulse Rate 94 H 105 H 98 H Respiratory Rate 22 29 H 29 H Blood Pressure O2 Sat by Pulse Oximetry 94 L 96 96 11/12/18 19:30 11/12/18 19:40 11/12/18 19:50 Temperature Pulse Rate 99 H 101 H 91 H Respiratory Rate 30 H 29 H 22 Blood Pressure O2 Sat by Pulse Oximetry 90 L 98 100 11/12/18 20:00 11/12/18 20:10 11/12/18 20:20 Temperature Pulse Rate 100 H 109 H 91 H Respiratory Rate 23 23 26 H Blood Pressure O2 Sat by Pulse Oximetry 96 11/12/18 20:30 11/12/18 20:40 11/12/18 20:50 Temperature Pulse Rate 94 H 102 H 100 H Respiratory Rate 24 22 26 H Blood Pressure O2 Sat by Pulse Oximetry 97 80 L 97 11/12/18 21:00 11/12/18 21:10 Temperature Pulse Rate 91 H 101 H Respiratory Rate 24 20 Blood Pressure O2 Sat by Pulse Oximetry 98 95 Laboratory Results - last 24 hr 11/12/18 11/12/18 11/12/18 19:45 19:45 19:45 WBC 16.89 H RBC 4.16 L Hgb 12.4 Hct 36.8 L MCV 88.5 MCH 29.8 MCHC 33.7 RDW Std Deviation 14.7 H Plt Count 282 MPV 10.6 H Immature Gran % (Auto) 0.3 Neut % (Auto) 86.5 H Lymph % (Auto) 5.2 L [place] % (Auto) 7.9 Eos % (Auto) 0.0 Baso % (Auto) 0.1 Immature Gran # (Auto) 0.05 H Neut # (Auto) 14.61 H Lymph # (Auto) 0.88 L [place] # (Auto) 1.33 H Eos # (Auto) 0.00 Baso # (Auto) 0.02 PT INR PTT (Actin FS) Sodium 139 Potassium 3.8 Chloride 94 L Carbon Dioxide 30 Anion Gap 15 BUN 30 H Creatinine 1.2 H Estimated GFR/1.73 m2 43 BUN/Creatinine Ratio 25 Glucose 160 H Calculated Osmolality 287 Calcium 9.4 Total Bilirubin 1.78 H AST 36 H ALT 19 Alkaline Phosphatase 73 Creatine Kinase 636 H Creatine Kinase Index 1.7 CK-MB (CK-2) 11.01 H Troponin T Total Protein 7.1 Albumin 4.1 Globulin 3.0 Albumin/Globulin Ratio 1.4 Plasma Lactate 1.6 Urine Source Urine Color Urine Turbidity Urine pH Ur Specific [place] Urine Protein Ur Glucose (Stick) Ur Ketones (Stick) Urine Blood Urine Nitrite Urine Bilirubin Urobilinogen Dipstick Urine Leukocytes Urine WBC (Auto) Urine RBC (Auto) U Epithel Cells (Auto) Urine Bacteria (Auto) 11/12/18 11/12/18 11/12/18 19:45 19:45 21:10 WBC RBC Hgb Hct MCV MCH MCHC RDW Std Deviation Plt Count MPV Immature Gran % (Auto) Neut % (Auto) Lymph % (Auto) [place] % (Auto) Eos % (Auto) Baso % (Auto) Immature Gran # (Auto) Neut # (Auto) Lymph # (Auto) [place] # (Auto) Eos # (Auto) Baso # (Auto) PT 15.0 INR 1.09 PTT (Actin FS) 31.3 Sodium Potassium Chloride Carbon Dioxide Anion Gap BUN Creatinine Estimated GFR/1.73 m2 BUN/Creatinine Ratio Glucose Calculated Osmolality Calcium Total Bilirubin AST ALT Alkaline Phosphatase Creatine Kinase Creatine Kinase Index CK-MB (CK-2) Troponin T 0.012 Total Protein Albumin Globulin Albumin/Globulin Ratio Plasma Lactate Urine Source CLEAN CATCH Urine Color YELLOW Urine Turbidity HAZY Urine pH 5.5 Ur Specific [place] 1.020 Urine Protein 300 A Ur Glucose (Stick) NEGATIVE Ur Ketones (Stick) TRACE A Urine Blood MODERATE A Urine Nitrite NEGATIVE Urine Bilirubin NEGATIVE Urobilinogen Dipstick NORMAL Urine Leukocytes LARGE A Urine WBC (Auto) TNTC A Urine RBC (Auto) <10 U Epithel Cells (Auto) <10 Urine Bacteria (Auto) 4+ Orders Category Date Time Status Cardiac Monitoring DIRECTED Care 11/12/18 19:17 Active Finger Stick Blood Sugar (ED) DIRECTED Care 11/12/18 19:17 Active Oxygen Therapy- ED Nursing DIRECTED Care 11/12/18 19:17 Active Saline Loc NOW Care 11/12/18 19:17 Active CHEST-PORTABLE [RAD] Stat Exams 11/12/18 19:17 Completed CBC WITH ELECTRONIC DIFF [HEME] Stat Lab 11/12/18 19:45 Completed CK PROFILE [SP CHEM] Stat Lab 11/12/18 19:45 Completed COMPREHENSIVE METABOLIC PANEL [CHEM] Stat Lab 11/12/18 19:45 Completed LACTATE, PLASMA [CHEM] Stat Lab 11/12/18 19:45 Completed PROTIME WITH INR [COAG] Stat Lab 11/12/18 19:45 Completed PTT [COAG] Stat Lab 11/12/18 19:45 Completed TROPONIN T Stat Lab 11/12/18 19:45 Completed URINALYSIS W/POSS RFLX CULT [URINALYSIS] Stat Lab 11/12/18 21:10 Completed URINE CULTURE [RM] Routine Lab 11/12/18 22:38 Received CefTRIAXONE [Rocephin] 1 gm Med 11/12/18 23:06 Active 0.9% Sodium Chloride Inj [Ns] 50 ml IV NOW Altered Mental Status Stat Oth 11/12/18 19:12 Ordered EKG [EKG] Stat Ther 11/12/18 19:17 Ordered Pt signed out to me by Dr. Avila, pt has UTI, too weak to walk or do ADLs and pt lives alone, will admit for abx Result Diagrams: 11/12/18 19:45 11/12/18 19:45 <Curry Almaraz - Last Filed: 11/12/18 23:11> Departure <Laura Avila - Last Filed: 11/12/18 20:06> - Departure Date of Disposition Decision: 11/12/18 Time of Disposition Decision: 23:10 Certified Medical Emergency: Emergent - Critical Care Note This patient required my direct & personal management of CC.: No <Curry Almaraz - Last Filed: 11/12/18 23:11> - Departure DIAGNOSIS: UTI (urinary tract infection) Qualifiers: Urinary tract infection type: acute cystitis Hematuria presence: without hematuria Qualified Code(s): N30.00 - Acute cystitis without hematuria Disposition: ADMITTED INPATIENT 09 Condition: Stable Referrals and Follow-Ups: Dale Bermudez MD [Primary Care Provider] - Attestation - Physician/ BRIT Attestation Patient care was provided by Advanced Practice Provider:: No The physician spent face to face time with patient:: Yes Advanced Practice Provider documentation review:: Supervising physician onsite and consulted in the evaluation and care of this patient. The physician did have a face to face encounter with the patient. <Curry Almaraz - Last Filed: 11/12/18 23:11> This chart was documented by the indicated scribe, (Yessy Whitley Scribe) and accurately reflects the services I performed and decisions made by me, Laura Avila MD, as attested by the provider's signature.
[2018-11-12 20:38] LABS: CALCIUM 9.4 mg/dL (8.8-10.2); TOTAL BILIRUBIN 1.78 mg/dL (0.20-1.00); TOTAL PROTEIN 7.1 g/dL (6.3-8.3)
[2018-11-12 20:39] LABS: ALB/GLOB RATIO 1.4; ALBUMIN 4.1 g/dL (3.5-5.0); CREATININE 1.2 mg/dL (0.5-0.9); POTASSIUM 3.8 mmol/L (3.5-5.1)
[2018-11-12 20:53] LABS: CK INDEX 1.7 (0.0-2.5); CK-MB 11.01 ng/mL (0.0-5.0)
[2018-11-12 21:19] LABS: URINE SOURCE CLEAN CATCH
[2018-11-12 21:29] LABS: BILIRUBIN URINE NEGATIVE (NEGATIVE); BLOOD URINE MODERATE (NEGATIVE); COLOR YELLOW; GLUCOSE URINE NEGATIVE (NEGATIVE); KETONE URINE TRACE mg/dL (NEGATIVE); LEUKOCYTES URINE LARGE (NEGATIVE); NITRITE URINE NEGATIVE (NEGATIVE); PH URINE 5.5; PROTEIN URINE 300 mg/dL (NEGATIVE); TURBIDITY URINE HAZY (CLEAR); UROBILINOGEN URINE NORMAL (NORMAL)
[2018-11-12 21:31] LABS: UR EPITHELIAL CELLS <10 /HPF (<10); URINE BACTERIA 4+ /HPF; URINE RBC <10 /HPF (<10); URINE WBC TNTC /HPF (<10)
[2018-11-12] MEDS ORDERED: ROCEPHIN 1 GM in NS 50 ML IV ONE (23:06)
[2018-11-13] MEDS ORDERED: NS 500 ML IV ONE (00:07)
[2018-11-13] MEDS ORDERED: NS 1,000 ML IV ONE (00:09)
[2018-11-13] MEDS ORDERED: TYLENOL PO PRN (00:09)
[2018-11-13] MEDS ORDERED: ZOFRAN IV PRN (00:09)
[2018-11-13 01:09] LABS: HEMOGLOBIN A1C 5.1 % (4.8-6.0)
--- NOTE | 2018-11-13 01:48 | HISTORY AND PHYSICAL ---
CHIEF COMPLAINT: Altered mental status, UTI symptoms. HISTORY OF PRESENT ILLNESS: Ms. Kam is an 83-year-old female who sees Dr. Dale Bermudez outpatient. She had an appointment to see Dr. Bermudez yesterday morning related to dysuria. She apparently, according to her son who is at the bedside, was unable to urinate in the cup so they cancelled the appointment. At some point she was found to be sitting in the kitchen floor. She was very agitated and disoriented so they brought her into the emergency room. Laboratory data was obtained which showed a 16,000 white blood cell count and urine confirmed a leukocyte esterase positive urinary tract infection. She will be admitted for further evaluation and treatment. PAST MEDICAL HISTORY: Hypertension, hyperlipidemia, diabetes mellitus type 2, chronic iron deficiency anemia, GI bleed. PREVIOUS SURGICAL HISTORY: Denies. ALLERGIES: No known drug allergies. HOME MEDICATIONS: I believe she takes levothyroxine 50 mcg, losartan 50 mg a day, metformin 500 mg a day, pravastatin 40 mg a day, and spironolactone/hydrochlorothiazide 25/25 one a day. However, home medications have not been fully reconciled. Order was placed for Nursing to reconcile home medications. SOCIAL HISTORY: Former smoker. Used to smoke 2-1/2 packs a day. She smoked that much for 30 years. She quit in 1993. Never used alcohol. No illicit drugs. I believe she lives alone in [place]. FAMILY HISTORY: Positive for hypertension and diabetes mellitus in first-degree relatives. REVIEW OF SYSTEMS: Fourteen point review of systems attempted with the patient. She is disoriented. She denies complaint at this time. However, she is only oriented to person and place. All other pertinent positives are listed above in the HPI. PHYSICAL EXAMINATION: VITAL SIGNS: Temperature 97.3, pulse was 115, sinus tachycardia, respirations 20, blood pressure 155/108, oxygen saturation 98% on room air. GENERAL: Pleasantly confused 83-year-old female lying in the ER stretcher, is oriented only to person and place, disoriented to time and situation. She is in no acute distress. HEENT: Head is normocephalic, atraumatic. Pupils equal, round, reactive to light. Extraocular eye movement is intact. Sclerae are anicteric. Conjunctivae are mildly pale. Oral mucosa is dry. NECK: Supple. No JVD. No thyromegaly. Trachea is midline. No cervical lymphadenopathy. CARDIAC: S1, S2 appreciated. No murmurs, gallops, rubs. Patient is tachycardic. LUNGS: Clear to auscultation bilaterally. No rhonchi, wheezes, rales. Symmetrical rise and fall with respirations. ABDOMEN: Protuberant, soft, nondistended, nontender. Bowel sounds present all 4 quadrants, normoactive. No pulsatile mass or organomegaly. EXTREMITIES: No clubbing, cyanosis or edema. Two-plus pedal pulses bilaterally. GENITOURINARY: No bladder distention. Otherwise deferred. NEUROLOGICAL: Oriented to person and place. Disoriented to time and situation. Cranial nerves 2 through 12 appear to be grossly intact. DIAGNOSTIC DATA: Chest x-ray: No infiltrates, effusions or pulmonary edema. LABORATORY DATA: WBC 16.89. Hemoglobin 12.4. Hematocrit 36.8. Platelet count 282. Coagulation studies within normal limits. Sodium 139. Potassium 3.8. Chloride 94. Carbon dioxide 30. BUN 30. Creatinine 1.2. Glucose 160. Urine: Leukocyte esterase positive, too numerous to count WBCs, 4-plus bacteria. ASSESSMENT AND PLAN: 1. Urinary tract infection. The patient appears to have had Proteus in her urine as well as in her blood cultures last time. We will treat with Rocephin 1 g IV q.24 hours at this time. We will give 500 mL normal saline bolus then continue gentle fluid hydration and normal saline at 75 mL an hour. 2. Diabetes mellitus type 2 with hyperglycemia. Check hemoglobin A1c. Sliding scale insulin with fingerstick blood sugar. We will hold metformin. 3. Hypothyroidism. Check TSH. Continue Synthroid. 4. Hypertension. We will continue losartan. We will thiazide diuretic at this time. 5. History of anemia. She appears to be at her baseline. 6. Hyperlipidemia. Continue statin. Further recommendations per patient clinical course. Dictated by LUIS EDUARDO Hyatt for Sunshine Bartholomew MD cc: LUIS EDUARDO Hyatt MD Timothy P. Weirich, MD Ms. Kam has fluctuating levels of cognition presumably related to UTI,dehydration and possibly yet to be determined medication toxicity. Discussed the above plan of care with family and BAG WASHER. Skin turgor was mildly diminished. MTDD
[2018-11-13] MEDS: HUMALOG SUBQ SCH ×4 (06:31→20:50)
[2018-11-13] MEDS: SYNTHROID PO SCH (06:31)
--- NOTE | 2018-11-13 07:30 | EKG Report ---
Test Performed on : 11/13/2018 07:22:28 AM Test Reason : chest pain Blood Pressure : / mmHG Vent. Rate : 100 BPM Atrial Rate : 100 BPM P-R Int : 106 ms QRS Dur : 124 ms QT Int : 380 ms P-R-T Axes : 039 081 -27 degrees QTc Int : 490 ms Sinus rhythm. with short LA with premature atrial complexes. Right bundle branch block T wave abnormality, consider inferior ischemia Abnormal ECG When compared with ECG of 12-NOV-2018 18:52, (Unconfirmed) premature ventricular complexes. are no longer present premature atrial complexes. are now present Confirmed by Oswald GUTIERREZ, Rohit Nicholson ([id number]) on 11/14/2018 10:54:01 AM
--- NOTE | 2018-11-13 07:34 | EKG Report ---
Test Performed on : 11/12/2018 6:52:06 PM Test Reason : ams Blood Pressure : / mmHG Vent. Rate : 101 BPM Atrial Rate : 144 BPM P-R Int : 100 ms QRS Dur : 120 ms QT Int : 368 ms P-R-T Axes : 048 067 -27 degrees QTc Int : 477 ms Sinus tachycardia. with short SC with frequent premature ventricular complexes. Right bundle branch block T wave abnormality, consider inferior ischemia Abnormal ECG When compared with ECG of 07-SEP-2018 13:00, premature ventricular complexes. are now present Unconfirmed Result
--- NOTE | 2018-11-13 10:09 | PROGRESS NOTE ---
DATE: 11/13/2018 SUBJECTIVE: The patient was admitted last night, having been found on the floor of her kitchen for an unknown period of time. She had what appeared to be a urinary tract infection. She was started on empiric antibiotics and may feel a little bit better today. OBJECTIVE: Vital Signs: 98.6, 93, 18, 162/65, 95% saturated on room air. Lungs: Clear. Cardiovascular: Regular. Abdomen: Protuberant as the patient is obese. Extremities: No peripheral edema. LABORATORY DATA: Reviewed from yesterday. ASSESSMENT AND PLAN: 1. Urinary tract infection is being treated with Rocephin. We are awaiting culture results and we will adopt changes into her medical regimen depending on those results. Last time she had Proteus mirabilis which was resistant only to nitrofurantoin. 2. The patient's diabetes will be monitored her fingersticks. She will continue medications and watch this. 3. Blood pressure control is adequate. 4. The patient is encouraged to get up with assistance to go to the bedside commode or the bathroom. She is encouraged to eat and drink. 5. We noted that the patient's elevated CK upon admission and I plan to recheck this in the morning. I do not think she had a cardiac event and describes no symptoms consistent with that. I think maybe she sat down on the floor and just simply was not able to get up for quite some period of time. She believes that was only about 10 minutes, but her family believes that it was a longer time based on other interactions throughout the day with her by phone and with visitors yesterday. cc: Dale Bermudez MD
[2018-11-13] MEDS: NS 1,000 ML IV ONE ×2 (10:10→10:53)
[2018-11-13] MEDS: COZAAR PO SCH (10:52)
[2018-11-13] MEDS: ROCEPHIN 1 GM in NS 50 ML IV SCH (10:53)
[2018-11-13] MEDS: ICAR-C PO SCH ×2 (11:02→20:50)
[2018-11-13] MEDS: FOLTX PO SCH (11:02)
[2018-11-13] MEDS: PRAVACHOL PO SCH (20:50)
[2018-11-14] MEDS: PRILOSEC PO SCH (06:46)
[2018-11-14] MEDS: SYNTHROID PO SCH (06:46)
[2018-11-14] MEDS: HUMALOG SUBQ SCH ×4 (06:46→20:54)
[2018-11-14 07:38] LABS: BASO# 0.02 X1000 (0.0-0.2); BASO% 0.2 % (0.0-0.8); EOS# 0.08 X1000 (0.0-0.7); EOS% 0.9 % (0.0-10.0); HEMATOCRIT 34.6 % (37.0-47.0); HEMOGLOBIN 11.4 g/dL (12.0-16.0); LYMPH# 0.73 X1000 (1.2-3.4); LYMPH% 7.8 % (20.5-51.1); MCH 29.8 PG (27-31); MCHC 32.9 g/dL (33-37); MCV 90.6 FL (81-99); MONO# 0.97 X1000 (0.11-0.59); MONO% 10.4 % (1.7-9.3); NEUT# 7.54 X1000 (1.4-6.5); NEUT% 80.7 % (42.2-75.2); PLT 244 X1000 (130-400); RBC 3.82 XMIL (4.2-5.4); RDW 14.8 % (11.5-14.5); WBC 9.34 X1000 (4.8-10.8)
[2018-11-14 08:07] LABS: CALCIUM 8.5 mg/dL (8.8-10.2); CREATININE 1.1 mg/dL (0.5-0.9); POTASSIUM 3.7 mmol/L (3.5-5.1)
[2018-11-14] MEDS: ICAR-C PO SCH ×2 (08:13→20:54)
[2018-11-14] MEDS: ROCEPHIN 1 GM in NS 50 ML IV SCH (08:13)
[2018-11-14] MEDS: GLUCOPHAGE PO SCH (08:13)
[2018-11-14] MEDS: FOLTX PO SCH (08:13)
[2018-11-14] MEDS: COZAAR PO SCH (08:13)
--- NOTE | 2018-11-14 09:52 | PROGRESS NOTE ---
DATE: 11/14/2018 SUBJECTIVE: The patient is up sitting in a chair eating breakfast. She is more alert and interactive than she was yesterday. She states she is feeling better but states that she cannot walk. I am not sure that much effort has been made to get her up in that regard. She has regained her appetite. She stated that she was in no hurry to go home much to the shock and amazement of myself and her family member who was present. OBJECTIVE: VITAL SIGNS: 97.6 degrees, 94, 21, 65/72. GENERAL: The patient is alert, oriented, conversant and appropriate. LUNGS: Clear. CARDIOVASCULAR: Regular. LABORATORY: White cell count is 9.3, hematocrit 34.6. BUN 33, creatinine 1.1. Blood sugars are reasonably well controlled. Repeat CK was 148. Troponin T was 0.016. Microbiology studies did not show any growth in the urine culture on initial evaluation. ASSESSMENT AND PLAN: 1. The patient's UTI is being treated with Rocephin. That should cover the proteus mirabilis that was grown on her previous culture result. We do not have any definitive culture results to guide us on this particular admission. I think while she is in the hospital, we will continue Rocephin and discharge her home on some oral medication which will be consistent with her previous infection treatment. 2. Diabetes reasonably controlled. 3. Blood pressure control is adequate but not optimal. We will continue to monitor this. We can likely make adjustments on that on an outpatient basis. 4. The patient is encouraged to get up. We are going to get a stat PT consult and if she shows the ability to ambulate or at least transfer with assistance and if the family is comfortable, we can send her home this weekend. cc: Dale Bermudez MD
[2018-11-14] MEDS: PRAVACHOL PO SCH (20:54)
[2018-11-15] MEDS: PRILOSEC PO SCH (06:05)
[2018-11-15] MEDS: SYNTHROID PO SCH (06:05)
[2018-11-15] MEDS: HUMALOG SUBQ SCH (06:06)
[2018-11-15] MEDS: GLUCOPHAGE PO SCH (08:48)
[2018-11-15] MEDS: FOLTX PO SCH (08:48)
[2018-11-15] MEDS: ICAR-C PO SCH ×2 (08:48→21:21)
[2018-11-15] MEDS: ROCEPHIN 1 GM in NS 50 ML IV SCH (08:48)
[2018-11-15] MEDS: COZAAR PO SCH (08:48)
[2018-11-15] MEDS: PRAVACHOL PO SCH (21:21)
[2018-11-15] MEDS: SEPTRA DS PO SCH (21:21)
[2018-11-16] MEDS: SYNTHROID PO SCH (06:08)
[2018-11-16] MEDS: PRILOSEC PO SCH (06:08)
[2018-11-16] MEDS: SEPTRA DS PO SCH ×3 (09:10→21:00)
[2018-11-16] MEDS: GLUCOPHAGE PO SCH (09:10)
[2018-11-16] MEDS: FOLTX PO SCH (09:10)
[2018-11-16] MEDS: ICAR-C PO SCH ×3 (09:10→21:00)
[2018-11-16] MEDS: CENTRUM SILVER PO SCH (09:10)
[2018-11-16] MEDS: ALDACTAZIDE 25/25 PO SCH (09:11)
[2018-11-16] MEDS: COZAAR PO SCH (09:11)
[2018-11-16] MEDS: PRAVACHOL PO SCH ×2 (19:56→21:00)
[2018-11-17] MEDS: PRILOSEC PO SCH ×2 (05:52→06:43)
[2018-11-17] MEDS: SYNTHROID PO SCH ×2 (05:52→06:43)
[2018-11-17 07:19] LABS: BASO# 0.02 X1000 (0.0-0.2); BASO% 0.3 % (0.0-0.8); EOS# 0.36 X1000 (0.0-0.7); HEMATOCRIT 31.4 % (37.0-47.0); HEMOGLOBIN 10.4 g/dL (12.0-16.0); LYMPH# 1.46 X1000 (1.2-3.4); LYMPH% 20.3 % (20.5-51.1); MCH 30.1 PG (27-31); MCHC 33.1 g/dL (33-37); MCV 90.8 FL (81-99); MONO# 0.94 X1000 (0.11-0.59); MONO% 13.1 % (1.7-9.3); MPV 10.4 FL (7.4-10.4); NEUT% 61.3 % (42.2-75.2); PLT 317 X1000 (130-400); RBC 3.46 XMIL (4.2-5.4); RDW 14.1 % (11.5-14.5); WBC 7.18 X1000 (4.8-10.8)
[2018-11-17 07:32] VITALS: BP 147/66
[2018-11-17 07:41] LABS: CALCIUM 8.7 mg/dL (8.8-10.2); CREATININE 1.4 mg/dL (0.5-0.9)
[2018-11-17] MEDS: FOLTX PO SCH (08:05)
[2018-11-17] MEDS: GLUCOPHAGE PO SCH (08:05)
[2018-11-17] MEDS: ICAR-C PO SCH (08:05)
[2018-11-17] MEDS: COZAAR PO SCH (08:05)
[2018-11-17] MEDS: CENTRUM SILVER PO SCH (08:05)
[2018-11-17] MEDS: SEPTRA DS PO SCH (08:05)
[2018-11-17] MEDS: ALDACTAZIDE 25/25 PO SCH (08:08)
--- NOTE | 2018-11-17 13:58 | DISCHARGE SUMMARY ---
ADMISSION DATE: 11/12/2018 DISCHARGE DATE: 11/17/2018 FINAL DIAGNOSES: 1. Acute pyelonephritis. Klebsiella pneumoniae cultured. 2. Metabolic encephalopathy secondary to number 1. 3. Type 2 diabetes mellitus, adequately controlled. 4. Mild anemia, stable. 5. Essential hypertension. 6. Stage 3 chronic kidney disease. 7. Hypothyroidism, replaced. 8. Hyperlipidemia, treated. HISTORY OF PRESENT ILLNESS: Ms. Kam is an 83-year-old who is followed by Dr. Bermudez for multiple medical problems including hypertension and type 2 diabetes. On the day of admission, she was found sitting on her kitchen floor agitated and disoriented. She had previously complained of some dysuria and was scheduled to see Dr. Bermudez for evaluation. In the emergency room, she was noted to have an elevated white blood cell count of nearly 17,000 and a urinalysis strongly suggestive of urinary tract infection. PHYSICAL EXAMINATION: VITAL SIGNS: Pulse 115, temperature 97.3, respirations 20, blood pressure 155/108. GENERAL: She was a pleasantly confused elderly female, oriented to person and place but not to time. HEENT: Unremarkable. NECK: Supple with no JVD. LUNGS: Clear. CARDIAC: Regular rate and rhythm. No murmurs. ABDOMEN: Soft and nontender with active bowel sounds. DIAGNOSTIC DATA: Laboratory findings were white blood cell count of 16,890, hemoglobin 12.4. BUN was 30, creatinine 1.2, glucose 160. HOSPITAL COURSE: She was admitted to the Medical Floor and begun on intravenous Rocephin 1 g q.24 hours. Her urine culture grew Klebsiella sensitive to trimethoprim sulfa and first generation cephalosporins. After several days of intravenous Rocephin, she was changed to oral trimethoprim sulfa and continued to improve. Her disorientation improved rapidly with control of her infection. Her blood sugar remained relatively stable and controlled, and her outpatient medications were resumed. Her TSH was normal, and she was continued on Synthroid. Her blood pressure was slightly elevated but gradually came down with reinstitution of home medications. She was seen by Physical Therapy and able to ambulate fairly well, although she requested a front- wheeled walker at home. She lives alone but has close attention to both her sons and daughters-in- law, and with some home health, they should be able to adequately monitor her further recovery. She has been walking to and from the bathroom here without difficulty. DISCHARGE MEDICATIONS: Acetaminophen 325 mg 2 tablets q.6 hours p.r.n. for pain or fever, Folgard 1 daily, I-car C 1 daily, levothyroxine 50 mcg daily, losartan 50 mg daily, metformin 500 mg daily with breakfast, Centrum Silver 1 daily, omeprazole 40 mg daily, pravastatin 40 mg nightly at bedtime, Aldactazide 25/25 one-half tablet daily, trimethoprim sulfa double strength tablets 1 q.12 hours for 5 additional days (number 10 with no refill). She is to return to Dr. Bermudez's office in 8 to 14 days for a transition of care visit. cc: MD Dale Plaza MD
== END 2018-11-17 10:27 | disposition home health service (06) | DRG 689 ==
LOC: ED 18:35 → SUATTDRO 11-13 00:59 → 3N 11-13 00:59
PROVIDERS: ADMIT Internal Medicine; ATTEND Internal Medicine
CPT/HCPCS: 71010; 71045; 80048; 80053; 81001; 82550; 82553; 82948; 83036; 83605; 84443; 84484; 85025; 85610; 85730; 87077; 87088; 87186; 93005; 93010; 96361; 96365; 97116; 97162; 97530; 99285; A9270; J0696; J1815; J7030; J7040; XXXXX